=== PATIENT | female | born 1985 | race African-American/Black ===

== ENCOUNTER 2016-11-02 20:33 | Inpatient (IN) | payer OTHER ==
[~2016-11-02] VITALS: Ht 152.4 cm; Wt 81.6 kg
--- NOTE | ~2016-11-02 | HC ---
[facility] [place] [address] CONSULTATION Name: KILEY FRIEND Room #: 441-P ADM IN M.R.#: [id number] Admission: 11/03/16 Attend Phys: Santos Corrales MD Discharge: Date of : 87 Report #: [id number] THIS REPORT FOR: //name// CC: Santos Young DATE OF SERVICE: 11/03/2016 HISTORY OF PRESENT ILLNESS: The patient is a 31-year-old female who presents with acute onset of right flank pain. She states the pain began yesterday in her right flank, radiating to her right groin. This was associated with nausea and vomiting. She states that her pain persisted, so she received parenteral pain medication in the emergency room and since that time, has been well controlled. She also had noted increasing urinary urgency and frequency. She denies any previous history of renal stone disease. She has no family history of renal stone disease. She states she drinks a lot of coffee and does drink some alcohol. She is a poor water drinker. PAST MEDICAL HISTORY: Medical illnesses, asthma. ALLERGIES: LAMICTAL. PHYSICAL EXAMINATION: On examination, she has no flank tenderness. LABORATORY DATA: Her creatinine is 0.9. Her white blood cell count is 11.8. Her urinalysis shows 3-10 red cells, 16-25 white cells and many bacteria. She has a urine culture pending. On CT scan, she is noted to have a 4-mm stone at the right UVJ with mild hydronephrosis. She is also noted to have a small stone in her left collecting system. IMPRESSION AND PLAN: 1. Right ureteral calculus/left renal calculus. The patient's pain is well controlled now. She is afebrile. We will plan to start her on Flomax 0.4 mg b.i.d., continue with brisk IV fluids. I have instructed her to try to drink a large amount of water today to try to flush the stone. 2. Urinary tract infection. She is receiving ceftriaxone and has a urine culture pending. We will plan to get a KUB in the morning. By: [id number] Kenneth Silva MD /nt
[~2016-11-02 20:33] MED LIST: NORCO 5-325 TA1 EAC1 PO; PROAIR HFA8.5 GM IH; ZOLOFT 50 MG TA50 M1 PO
[2016-11-02 21:48] VITALS: BP 154/76
[2016-11-02] MEDS ORDERED: SINGULAIR 10 MG10 M1 PO (21:53)
[2016-11-02] MEDS ORDERED: SYMBICORT160 MCG/4. INH (21:53)
[2016-11-02 22:09] LABS: URINE BILIRUBIN NEGATIVE (Negative); URINE BLOOD 2+ (Negative); URINE COLOR YELLOW; URINE GLUCOSE-RANDOM* NEGATIVE (Negative); URINE KETONES NEGATIVE (Negative); URINE NITRITE POSITIVE (Negative); URINE PROTEIN (DIPSTICK) NEGATIVE (Negative); URINE UROBILINOGEN 0.2 E.U./dl (0.2-1.0)
[2016-11-02 22:24] LABS: CASTS None Seen /LPF (None Seen); SQUAMOUS 0-3 Few /LPF (0-3)
[2016-11-02 22:25] LABS: BACTERIA >30 Many /HPF (None Seen); CRYSTALS None Seen /LPF (None Seen); URINE RBC 3-10 Few /HPF (0-2)
[2016-11-02 22:40] LABS: HEMATOCRIT 35.5 % (37.0-47.0); HEMOGLOBIN 11.7 gm/dL (12.0-15.0); MCH 28.8 pg (26.0-34.0); MCHC 33.1 g/dL (28.0-37.0); PLATELET COUNT 158 thou/uL (150-400); RBC 4.07 mil/uL (4.20-5.00); RDW 12.6 % (10.5-14.5); WBC 11.8 thou/uL (4.0-11.0)
[2016-11-02 22:43] LABS: CALCIUM 8.9 mg/dL (8.5-10.1)
[2016-11-02 22:45] LABS: MANUAL DIFF YES
[2016-11-02 22:49] LABS: ALBUMIN 3.9 g/dL (3.4-5.0); TOTAL BILIRUBIN 0.4 mg/dL (<0.1-1.0); TOTAL PROTEIN 7.8 g/dL (6.4-8.2)
[2016-11-02 23:14] LABS: ATYPICAL LYMPHS 1 %; TOTAL CELL COUNT 100
[2016-11-03 01:27] VITALS: BP 113/62
[2016-11-03 01:42] VITALS: BP 110/61
[2016-11-03 06:15] VITALS: BP 96/45
[2016-11-03 06:33] LABS: HEMATOCRIT 31.7 % (37.0-47.0); HEMOGLOBIN 10.6 gm/dL (12.0-15.0); MCHC 33.4 g/dL (28.0-37.0); RBC 3.64 mil/uL (4.20-5.00); RDW 12.8 % (10.5-14.5); WBC 16.6 thou/uL (4.0-11.0)
[2016-11-03 06:46] LABS: CALCIUM 7.9 mg/dL (8.5-10.1); CREATININE 0.9 mg/dL (0.6-1.0)
[2016-11-03 08:00] VITALS: BP 106/53
[2016-11-03 15:41] VITALS: BP 126/67
[2016-11-03 19:40] VITALS: BP 117/68
[2016-11-04 05:35] VITALS: BP 115/57
[2016-11-04 05:46] LABS: HEMOGLOBIN 10.2 gm/dL (12.0-15.0); MCH 29.2 pg (26.0-34.0); MCHC 32.8 g/dL (28.0-37.0); MCV 89.1 fL (80.0-100.0); RBC 3.48 mil/uL (4.20-5.00); RDW 13.2 % (10.5-14.5); WBC 8.5 thou/uL (4.0-11.0)
[2016-11-04 05:58] LABS: ALBUMIN 2.6 g/dL (3.4-5.0); CALCIUM 7.3 mg/dL (8.5-10.1); CREATININE 0.7 mg/dL (0.6-1.0); PHOSPHORUS 2.9 mg/dL (2.5-4.9); POTASSIUM 3.5 mmol/L (3.5-5.1)
[2016-11-04 08:00] VITALS: BP 110/72
[2016-11-04 16:00] VITALS: BP 122/68
[2016-11-04 20:35] VITALS: BP 132/83
[2016-11-05 05:55] VITALS: BP 118/60
[2016-11-05 07:48] VITALS: BP 138/69
[2016-11-05 08:00] VITALS: BP 138/69
[2016-11-05] MEDS ORDERED: FLOMAX0.4 MG PO (11:24)
[2016-11-05] MEDS ORDERED: NORCO 5-325 TA1 EACH PO (11:24)
[2016-11-05] MEDS ORDERED: LEVAQUIN 750 M750 MG PO (11:24)
[2016-11-05] MEDS ORDERED: PHENERGAN 25 MG25 M1 PO (11:24)
[2016-11-05 11:33] VITALS: BP 138/69
== END 2016-11-05 14:47 | disposition home or self-care (01) | DRG 872 ==
LOC: ER 20:33 → EROBS 11-03 00:27 → 4S 11-03 00:27
PROVIDERS: Hospitalist; Nurse Practitioner Family
DX: A41.9 Sepsis, unspecified organism (principal); N39.0 Urinary tract infection, site not specified; N10 Acute pyelonephritis; N13.2 Hydronephrosis with renal and ureteral calculous obstruction; F31.9 Bipolar disorder, unspecified; J45.909 Unspecified asthma, uncomplicated; Z79.899 Other long term (current) drug therapy; Z88.8 Allergy status to other drugs, medicaments and biological substances; Z83.3 Family history of diabetes mellitus; Z82.49 Family history of ischemic heart disease and other diseases of the circulatory system
CPT/HCPCS: 10195